=== PATIENT | female | born 1985 | race Caucasian/White ===

== ENCOUNTER 2021-02-22 12:55 | Outpatient (RCR) | payer MEDICARE, MEDICAID, SELFPAY ==
--- NOTE | 2021-02-22 13:39 | PTOPEVAL ---
Thank you for referring Peggy Woodson to [facility].? The patient is scheduled to be seen for therapy? _3___x/week for 12 visits. Please review, sign, date and return this plan of care AMANDA. I agree with and certify that the following plan of care is medically necessary. Referring Physician Date Admitting Provider: Attending Provider: Rosana Astudillo, EUCLID OPERATOR Referring Provider: *PT Outpatient Evaluation Start: 02/22/21 13:03 Freq: Status: Active Protocol: Document 02/22/21 13:07 BRAVO (Rec: 02/22/21 13:36 [email or web address]) Therapy Assessment Status Assessment Status Assessment Status Evaluation Evaluation Information Problem Diagnosis spondylosis Onset 02/29/20 Subjective Information Pt. reports that she underwent Query Text:As Reported By Patient/ back surgery on 11/26/19. she Family states that a few months after she slipped down some steps and developed increasing pain. She reports that she notices some feeling of the low back being unstable. she reports most pain is located mostly on the right side of the low back, but can radiate to both sides. She denies any l.e. symptoms. She reports that she can only stand for 5-10 minutes before having to sit due to pain. She states that the pain is constant. Pt. reports that her goal for therapy is to strengthen her back and decrease pain. Prior Level of Function Activity Level (Last 3 Months) Occupation disabled Hand Dominance Right Activity of Daily Living Ability Independent Indoor/Home Mobility Independent Community Mobility Independent Stairs Ability Independent Functional Cognition (Planning, Shopping Independent , Taking Medications) Cooking Yes Cleaning Yes Laundry Yes Shopping Yes Driving Yes Pain Assessment Timing of Pain Assessment Timing of Pain Assessment Pre-Treatment Pain Scale Pain Scale Used Numeric (1 - 10) Self Report Pain Assessment Lower Back Reported Pain Level 7 Pain Description Aching Lowest Pain Intensity 7 Greatest Pain Intensity
--- NOTE | 2021-02-22 13:59 | PTOPEVAL ---
Thank you for referring Peggy Woodson to [facility].? The patient is scheduled to be seen for therapy? _3___x/week for 12 visits. Please review, sign, date and return this plan of care AMANDA. I agree with and certify that the following plan of care is medically necessary. Referring Physician Date Admitting Provider: Attending Provider: Rosana Astudillo, MEASUREMENT SUPERINTENDENT Referring Provider: *PT Outpatient Evaluation Start: 02/22/21 13:03 Freq: Status: Active Protocol: Document 02/22/21 13:07 BRAVO (Rec: 02/22/21 13:36 [email or web address]) Therapy Assessment Status Assessment Status Assessment Status Evaluation Evaluation Information Problem Diagnosis spondylosis Onset 02/29/20 Subjective Information Pt. reports that she underwent Query Text:As Reported By Patient/ back surgery on 11/26/19. she Family states that a few months after she slipped down some steps and developed increasing pain. She reports that she notices some feeling of the low back being unstable. she reports most pain is located mostly on the right side of the low back, but can radiate to both sides. She denies any l.e. symptoms. She reports that she can only stand for 5-10 minutes before having to sit due to pain. She states that the pain is constant. Pt. reports that her goal for therapy is to strengthen her back and decrease pain. Prior Level of Function Activity Level (Last 3 Months) Occupation disabled Hand Dominance Right Activity of Daily Living Ability Independent Indoor/Home Mobility Independent Community Mobility Independent Stairs Ability Independent Functional Cognition (Planning, Shopping Independent , Taking Medications) Cooking Yes Cleaning Yes Laundry Yes Shopping Yes Driving Yes Pain Assessment Timing of Pain Assessment Timing of Pain Assessment Pre-Treatment Pain Scale Pain Scale Used Numeric (1 - 10) Self Report Pain Assessment Lower Back Reported Pain Level 7 Pain Description Aching Lowest Pain Intensity 7 Greatest Pain Intensity
== END 2021-03-09 10:31 | disposition home or self-care (01) ==
LOC: CHSPT 12:55
PROVIDERS: Visit Provider Nurse Practitioner Adult Health
DX: M47.816 Spondylosis without myelopathy or radiculopathy, lumbar region (principal)
CPT/HCPCS: 97014; 97110; 97140; 97161; G0283

== ENCOUNTER 2021-04-16 10:47 | Outpatient (CLI) | payer MEDICARE, MEDICAID, SELFPAY ==
[2021-04-16 12:34] LABS: Alanine Aminotransferase 32 U/L (14-59); Albumin Level 3.9 g/dL (3.4-5.0); Alkaline Phosphatase 78 U/L (46-116); Anion Gap 8 mmol/L (8-16); Aspartate Amino Transferase 12 U/L (15-37); Bilirubin,Total 0.1 mg/dL (0.00-1.00); Blood Urea Nitrogen 12 mg/dL (7-18); Calcium 8.6 mg/dL (8.5-10.1); Carbon Dioxide 30 mmol/L (21-32); Chloride 104 mmol/L (98-108); Cholesterol 162 mg/dL (0-200); Estimated Glomerular Filt Rate > 60; Glucose 81 mg/dL (70-99); HDL Direct 58 mg/dL (40-60); LDL Cholesterol Calculated 70 mg/dL (<130); Osmolality Calculated 292 mOsm/kg (285-295); Potassium 3.9 mmol/L (3.5-5.1); Sodium 142 mmol/L (136-145); Total Protein 6.8 g/dL (6.4-8.2); Triglycerides 168 mg/dL (0-150)
== END 2021-04-16 10:48 | disposition home or self-care (01) ==
LOC: CHSLAB 10:50
PROVIDERS: PCP Family Medicine Sports Medicine; Visit Provider Family Medicine Sports Medicine
DX: E78.2 Mixed hyperlipidemia (principal)
CPT/HCPCS: 36415; 80053; 80061